=== PATIENT | female | born 1985 | race Caucasian/White ===

== ENCOUNTER → 2017-12-18 | Outpatient (CLI) | payer OTHER ==
[~2017-12-18] MED LIST: IOHEXOL 240 MG/ML 50ML VIAL. ONE; IOHEXOL 240 MG/ML 50ML VIAL. PO ONE; IOHEXOL 300 MG/ML 75 ML VIAL. IV ONE
--- NOTE | 2017-12-18 13:35 | RAD ---
PQRS Compliance Statement: One or more of the following individualized dose reduction techniques were utilized for this examination: 1. Automated exposure control 2. Adjustment of the mA and/or kV according to patient size 3. Use of iterative reconstruction technique CT ABD PELV W/ORAL IV CONTRAST Clinical Indication: RECTAL BLEEDING, LLQ PAIN SINCE MAY. Comparison: None. Technique: Helical CT imaging of the abdomen and pelvis is performed after 75 cc Omnipaque 300 IV contrast. Oral contrast also given. Findings: Dome of the liver is excluded. Mild dependent atelectasis in the lower lobes. Cardiac size normal. Tiny hypodensity in segment 4 of the liver, too small to further characterize. The gallbladder, spleen, pancreas, adrenal glands, abdominal aorta, and kidneys are normal. Stomach unremarkable. No dilated small bowel. No colon wall thickening is seen. The appendix is normal. No abdominal adenopathy or free fluid. Urinary bladder is normal. IUD in the uterus. No pelvic free fluid. Tiny Schmorl's nodes in the thoracolumbar spine. IMPRESSION: No acute abdominal or pelvic abnormality. Electronically signed by: Hemanth Bateman MD (12/18/2017 1:32 PM) [id number]
== END | disposition home or self-care (01) ==
LOC: CT 11:53
PROVIDERS: ATTEND Internal Medicine Gastroenterology
DX: K62.5 Hemorrhage of anus and rectum (principal)
CPT/HCPCS: 74177; Q9966